=== PATIENT | male | born 1980 | race Caucasian/White ===

== ENCOUNTER 2018-04-16 14:56 | Emergency (ER) | payer BC ==
[2018-04-16 15:06] VITALS: RESP 18; TEMP 98.5
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
--- NOTE | 2018-04-16 16:49 | US ---
EXAMINATION TYPE: US venous doppler duplex LE RT DATE OF EXAM: 04/16/2018 3:37 PM COMPARISON: NONE CLINICAL HISTORY: Pain. SIDE PERFORMED: Right TECHNIQUE: The lower extremity deep venous system is examined utilizing real time linear array sonog diane with graded compression, doppler sonography and color-flow sonography. VESSELS IMAGED: External Iliac Vein (EIV) Common Femoral Vein Deep Femoral Vein Greater Saphenous Vein * Femoral Vein Popliteal Vein Small Saphenous Vein * Proximal Calf Veins (* superficial vessels) Right Leg: Negative for DVT IMPRESSION: Normal exam. No evidence of deep venous thrombosis in the right leg.
[2018-04-16 17:06] VITALS: BP 130/80; PULSE 80
== END 2018-04-16 17:02 | disposition home or self-care (01) ==
LOC: EC 14:56
DX: M79.604 Pain in right leg (principal); Z98.890 Other specified postprocedural states; Z88.2 Allergy status to sulfonamides; W55.22XA Struck by cow, initial encounter; Y92.009 Unspecified place in unspecified non-institutional (private) residence as the place of occurrence of the external cause
CPT/HCPCS: 99284

== ENCOUNTER 2020-07-19 00:47 | Emergency (ER) | payer BC ==
[2020-07-19 00:53] VITALS: TEMP 98
[2020-07-19] MEDS ORDERED: CLINDAMYCIN 150 MG CAP PO STA (02:09)
[2020-07-19 02:15] LABS: Glucose,Whole Blood 98 mg/dL (75-99)
--- NOTE | 2020-07-19 02:16 | ED ---
General Adult HPI - General Chief complaint: Skin/Abscess/Foreign Body Stated complaint: RT arm rash Time Seen by Provider: 07/19/20 01:03 Source: patient Mode of arrival: ambulatory - History of Present Illness Initial comments: 39-year-old male patient presents to the emergency department today for evaluation of redness, swelling to the right forearm. States a few days ago he developed some blistering over the area thought that he developed poison bobby. States that he did scratch to return in 20 wound. Was evaluated by his physician and was diagnosed with ringworm was given oral antifungal medication. States over the last 24 hours the area has become more red and swollen. States it is tender to touch. Denies drainage. He denies any fever or chills. States he is having some aching in the right axilla. Denies vomiting. Denies any history of diabetes. - Related Data Previous Rx's Medication Instructions Recorded Clindamycin [Cleocin] 450 mg PO Q6H #120 cap 07/19/20 Allergies Allergy/AdvReac Type Severity Reaction Status Date / Time Sulfa (Sulfonamide Allergy Rash/Hives Verified 04/16/18 15:07 Antibiotics) Review of Systems ROS Statement: Those systems with pertinent positive or pertinent negative responses have been documented in the HPI. ROS Other: All systems not noted in ROS Statement are negative. Past Medical History Past Medical History: No Reported History History of Any Multi-Drug Resistant Organisms: None Reported Past Surgical History: Orthopedic Surgery Past Psychological History: No Psychological Hx Reported Smoking Status: Never smoker Past Alcohol Use History: Occasional Past Drug Use History: None Reported General Exam General appearance: alert, in no apparent distress ENT exam: Present: normal exam, normal oropharynx, mucous membranes moist Respiratory exam: Present: normal lung sounds bilaterally. Absent: respiratory distress, wheezes, rales, rhonchi, stridor Cardiovascular Exam: Present: regular rate, normal rhythm, normal heart sounds. Absent: systolic murmur, diastolic murmur, rubs, gallop, clicks Extremities exam: Present: full ROM, normal capillary refill, other (There is scabbed lesion to the right dorsal forearm. Indurated, no fluctuance. There is surrounding erythema consistent with cellulitis. There is right axillary tenderness, no lymphadenopathy.). Absent: normal inspection, tenderness, pedal edema, joint swelling, calf tenderness Neurological exam: Present: alert, oriented X3, CN II-XII intact Psychiatric exam: Present: normal affect, normal mood Skin exam: Present: warm, dry, intact, normal color. Absent: rash Course Vital Signs 07/19/20 07/19/20 00:49 02:40 Temperature 98 F Pulse Rate 85 77 Respiratory 19 16 Rate Blood Pressure 144/83 144/88 O2 Sat by Pulse 98 100 Oximetry Medical Decision Making - Medical Decision Making 39-year-old male patient presents to the emergency department today for evaluat ion of right forearm pain, swelling, redness. Physical examination did reveal scabbed lesion noted to the dorsal forearm with surrounding cellulitis. No fluctuance. Patient be started on clindamycin. Instructed take Tylenol Motrin for pain control. He is instructed to apply warm compresses. He is instructed to follow-up with his primary care physician for recheck in 1-2 days. Return parameters were discussed in detail. He verbalizes understanding and agrees with this plan. Case discussed with Dr. Varner. - Lab Data Lab Results 07/19/20 Range/Units 02:14 POC Glucose (mg/dL) 98 (75-99) mg/dL POC Glu [employer] ID Dave Marin Disposition Clinical Impression: Cellulitis of forearm, right Disposition: HOME SELF-CARE Condition: Good Instructions (If sedation given, give patient instructions): Cellulitis (ED) Additional Instructions: Complete antibiotic prescription in full. Apply warm compresses to the area 4-5 times daily. Tylenol Motrin for pain control. Follow-up with primary care physician for recheck in 1-2 days. Return for any new, worsening, or concerning symptoms. Prescriptions: Clindamycin [Cleocin] 450 mg PO Q6H #120 cap Is patient prescribed a controlled substance at d/c from ED?: No Referrals: None,Stated [Primary Care Provider] - 1-2 days Time of Disposition: 02:15
[2020-07-19 02:41] VITALS: BP 144/88; PULSE 77; RESP 16
== END 2020-07-19 02:40 | disposition home or self-care (01) ==
LOC: EC 00:47
DX: L03.113 Cellulitis of right upper limb (principal); Z88.2 Allergy status to sulfonamides
CPT/HCPCS: 36415; 99282